=== PATIENT | female | born 1985 | race African-American/Black ===

== ENCOUNTER 2016-12-04 20:51 | Emergency (ER) | payer OTHER ==
[~2016-12-04] VITALS: Ht 177.8 cm; Wt 92.4 kg
[2016-12-04 21:48] LABS: CHLORIDE 106 mEq/L (99-109); MCH 22.6 PG (29.0-34.0); MCV 68.3 FL (83-99); PLATELET COUNT 252 K/uL (156-360); POTASSIUM 3.4 mEq/L (3.7-5.4); RBC DIS.WIDTH-SD 41.1 % (39-53); RED BLOOD COUNT 4.39 M/uL (3.80-5.20); SODIUM 137 mEq/L (136-147); WHITE BLOOD COUNT 6.3 K/uL (4.1-10.2)
[2016-12-04 21:50] LABS: GLUCOSE 93 mg/dL (70-99)
[2016-12-04 21:52] LABS: ANION GAP 12 MEQ/L (2-14); D-DIMER ELISA < 150.00 ng/mLDDU (<230)
[2016-12-04 21:54] LABS: GFR ESTIMATE (CALCULATED) > 59 mL/min/
[2016-12-04 21:55] LABS: UREA NITROGEN (BUN) 12 mg/dL (9-23)
[2016-12-04 22:02] LABS: TROP-I INTERPRETATION NEGATIVE; TROPONIN-I < 0.01 ng/mL (0.0-0.30)
[2016-12-04 23:25] LABS: TROP-I INTERPRETATION NEGATIVE; TROPONIN-I < 0.01 ng/mL (0.0-0.30)
[2016-12-05] MEDS ORDERED: ZANTAC150 MG PO (00:03)
[2016-12-05 00:08] VITALS: BP 128/92
== END 2016-12-05 00:12 | disposition home or self-care (01) ==
LOC: EME 20:51
PROVIDERS: Emergency Medicine
DX: R07.9 Chest pain, unspecified (principal); Z79.3 Long term (current) use of hormonal contraceptives
CPT/HCPCS: 71020; 80048; 84484; 85027; 85379; 93005; 99281; 99284